=== PATIENT | male | born 1985 | race African-American/Black ===

== ENCOUNTER 2024-05-14 23:59 | Observation (INO) ==
[2024-05-15 00:25] LABS: iSTAT Creatinine 0.6 mg/dl (0.6-1.3); iSTAT Hemoglobin 15.6 g/dl (14.0-18.0); iSTAT Ionized Calcium 1.16 mmol/l (1.12-1.32); iSTAT Potassium 4.1 mmol/L (3.3-5.0)
[2024-05-15 00:33] LABS: Basophils # (auto) 0.03 K/uL (0.00-0.20); Basophils % (auto) 0.4 %; Eosinophils # (auto) 0.16 K/uL (0.00-0.50); Eosinophils % (auto) 2.2 %; Hematocrit (blood only) 44.2 % (42.0-52.0); Hemoglobin 14.7 g/dl (14.0-18.0); Immature Granulocytes # (auto) 0.02 K/uL (0.01-0.20); Immature Granulocytes % (auto) 0.3 %; Lymphocytes # (auto) 3.43 K/uL (1.20-3.40); Lymphocytes % (auto) 46.5 %; Mean Corpuscular Hemoglobin 26.3 pg (25.0-34.0); Mean Corpuscular Hgb Conc 33.3 g/dL (32.0-36.0); Mean Corpuscular Volume 79.2 fL (80.0-100.0); Mean Platelet Volume 11.6 fL (9.4-12.4); Monocytes # (auto) 0.51 K/uL (0.11-0.59); Monocytes % (auto) 6.9 %; Neutrophils # (auto) 3.23 K/uL (1.40-6.50); Neutrophils % (auto) 43.7 %; Platelet Count 197 K/uL (130-400); RDW Coefficient of Variation 12.4 % (11.5-14.5); RDW Standard Deviation 35.3 fL (36.4-46.3); Red Blood Count 5.58 M/uL (4.70-6.10); White Blood Count 7.38 K/ul (4.8-10.8)
[2024-05-15] MEDS: NITROGLYCERIN SL 0.4 MG/TAB TAB ONE (01:03)
[2024-05-15] MEDS: NITROGLYCERIN SL 0.4 MG/TAB TAB SL STA (01:03)
--- NOTE | 2024-05-15 01:12 | XRay Report ---
EXAM: XR chest 1V portable CLINICAL HISTORY: Chest pain, nonspecific TECHNIQUE: Radiograph of chest was acquired. COMPARISON: none FINDINGS: The lungs are clear and well-expanded with no pulmonary infiltrate or pleural effusion. The cardiomediastinal silhouette is within normal limits. No acute osseous abnormality. IMPRESSION: 1. No significant abnormality seen. Electronically signed by Niraj Botello 05-15-2024 01:11 AM
[2024-05-15 01:17] LABS: Albumin Globulin Ratio 1.3 (0.9-2); Albumin Level 4.1 gm/dl (3.4-5.0); BUN Creatinine Ratio 20.5 (10-20); Bilirubin,Total 0.4 mg/dl (0.2-1.0); Calcium 9.3 mg/dl (8.6-10.3); Creatinine Clr Calc Pharmacy 147.4 ml/min; Globulin 3.1 gm/dl (2.5-4.0); Potassium 4.1 mmol/L (3.5-5.1); Total Protein 7.2 gm/dl (6.0-8.3); Troponin I High Sensitivity 4.6 pg/ml (0-20)
[2024-05-15] MEDS: fentaNYL citrate PF 100 MCG/2 ML VIAL IV STA (01:47)
[2024-05-15] MEDS: ONDANSETRON INJ 2 MG/ML 2 ML VIAL IV STA (01:47)
--- NOTE | 2024-05-15 01:51 | History & Physical Report ---
Date of Service May 15, 2024 Assessment & Plan (1) Chest pain: Plan: observation to medical telemetry Check 2D echo Repeat troponin Continue aspirin, atorvastatin (2) Diabetes: Plan: elevated blood sugar upon arrival. Patient reports that he has a difficult time getting to his medication in the alf because he has a poor relationship with some of the staff that distributes the medications. Did not take his insulin today which may account for his elevated blood sugars Continue Lantus 18 units twice daily and insulin sliding scale Goal blood sugar [id number] -Continue Lisinopril 5mg po q PM (3) Hyperlipidemia: Plan: Continue Atorvastatin History of Present Illness Chief Complaint: chest pain Primary Care Provider: AMBER Bam patient is a 39-year-old incarcerated male with history of hypertension, hyperlipidemia, diabetes presented with acute onset of left-sided chest pain was reported 21: 30.. Patient reports pain 8 out of 10, throbbing in nature, radiating to his left jaw. Some nausea associated with it but no vomiting, diaphoresis or dizziness. The pain lasted 1 to 2 hours. He was seen in the [facility] and given a nitro which reduced pain. He did have recurrence of same pain in the ER which resolved with nitro Allergies Allergy/AdvReac Type Severity Reaction Status Date / Time No Known Allergies Allergy Unverified 03/09/24 15:16 Home Medications Medication Instructions Recorded Confirmed Type aspirin 81 mg tablet,delayed 81 mg PO QPM 03/09/24 03/09/24 History release atorvastatin 20 mg tablet 20 mg PO HS 03/09/24 03/09/24 History diphenhydramine HCl 50 mg capsule 50 mg PO HS 03/09/24 03/09/24 History glipizide 10 mg tablet 10 mg PO BID 03/09/24 03/09/24 History insulin glargine 100 unit/mL 44 unit subcut PM 03/09/24 03/09/24 History subcutaneous solution lisinopril 5 mg tablet 5 mg PO QPM 03/09/24 03/09/24 History metformin 500 mg tablet,extended 1,000 mg PO BID 03/09/24 03/09/24 History release 24 hr olanzapine 15 mg tablet 15 mg PO HS 03/09/24 03/09/24 History Past Med/Surg History Problem List (Updated 05/15/24 @ 05:22 by Heather Rowan DO) Hyperlipidemia Diabetes Chest pain Medical History HTN (hypertension), benign Social History Smoking Status: Current every day smoker Tobacco Type: E-cigarettes / Vaping Feels Safe at Home: Yes Review of Systems Review of Systems: All systems reviewed & are unremarkable except as noted in HPI & below Physical Exam Physical Exam: General: patient resting comfortably, NAD, non-toxic in appearance, AA&O x 4 Skin: warm, dry, intact, no rashes or lesions HEENT: NC/AT, PERRL, EOMI, anicteric sclera, conjunctiva without injection, external ear normal to inspection and nontender, nares patent, moist mucus membranes, dentition intact, no oropharyngeal lesions, neck supple, trachea midline, no LAD, no thyromegaly, no JVD Heart: +S1/S2, regular, no m/r/g Lungs: equal air entry bilaterally, no rales/rhonchi/wheezes Abd: +BS, soft, NT/ND, no masses/organomegaly/ascites Ext: warm, 2+ pulses in UE/LE bilaterally, no clubbing/cyanosis or edema Neuro: nonfocal, patient AA&O x 4, speech intact, no facial droop, moving all extremities on command with equal strength 5/5 Results & Data Results & Data Vital Signs (Past 12 Hours) Vital Signs Temp Pulse Resp BP Pulse Ox O2 Del Method 05/15/24 01:49 97 Room Air 05/15/24 01:09 79 21 158/95 H 91 Room Air 05/15/24 01:00 80 16 157/102 H 90 Room Air 05/15/24 00:30 80 23 140/90 94 Room Air 05/15/24 00:14 36.7 C 86 15 138/92 97 Room Air 05/15/24 00:07 84 Laboratory Results Laboratory Results WBC 7.38 K/ul (4.8-10.8) 05/15/24 00:11 RBC 5.58 M/uL (4.70-6.10) 05/15/24 00:11 Hgb 14.7 g/dl (14.0-18.0) 05/15/24 00:11 POC Hgb 15.6 g/dl (14.0-18.0) 05/15/24 00:13 Hct 44.2 % (42.0-52.0) 05/15/24 00:11 POC Hct 46 % (42-52) 05/15/24 00:13 MCV 79.2 fL (80.0-100.0) L 05/15/24 00:11 MCH 26.3 pg (25.0-34.0) 05/15/24 00:11 MCHC 33.3 g/dL (32.0-36.0) 05/15/24 00:11 RDW Std Deviation 35.3 fL (36.4-46.3) L 05/15/24 00:11 RDW Coeff of Alicja 12.4 % (11.5-14.5) 05/15/24 00:11 Plt Count 197 K/uL (130-400) 05/15/24 00:11 MPV 11.6 fL (9.4-12.4) 05/15/24 00:11 Immature Gran % (Auto) 0.3 % 05/15/24 00:11 Neut % (Auto) 43.7 % 05/15/24 00:11 Lymph % (Auto) 46.5 % 05/15/24 00:11 [place] % (Auto) 6.9 % 05/15/24 00:11 Eos % (Auto) 2.2 % 05/15/24 00:11 Baso % (Auto) 0.4 % 05/15/24 00:11 Neut # (Auto) 3.23 K/uL (1.40-6.50) 05/15/24 00:11 Lymph # (Auto) 3.43 K/uL (1.20-3.40) H 05/15/24 00:11 [place] # (Auto) 0.51 K/uL (0.11-0.59) 05/15/24 00:11 Eos # (Auto) 0.16 K/uL (0.00-0.50) 05/15/24 00:11 Baso # (Auto) 0.03 K/uL (0.00-0.20) 05/15/24 00:11 Immature Gran # (Auto) 0.02 K/uL (0.01-0.20) 05/15/24 00:11 POC Sodium 131 mmol/L (135-144) L 05/15/24 00:13 Sodium 129 mmol/L (136-145) L 05/15/24 00:11 POC Potassium 4.1 mmol/L (3.3-5.0) 05/15/24 00:13 Potassium 4.1 mmol/L (3.5-5.1) 05/15/24 00:11 POC Chloride 97 mmol/L (101-112) L 05/15/24 00:13 Chloride 95 mmol/L (98-107) L 05/15/24 00:11 Carbon Dioxide 24 mmol/L (21-32) 05/15/24 00:11 POC Total CO2 21 mmol/L (24-31) L 05/15/24 00:13 Anion Gap 10 (3-11) 05/15/24 00:11 POC Anion Gap 17.0 mmol/L (16-25) 05/15/24 00:13 POC BUN 15 mg/dl (7-18) 05/15/24 00:13 BUN 16 mg/dl (6-23) 05/15/24 00:11 Creatinine 0.78 mg/dl (0.6-1.4) 05/15/24 00:11 POC Creatinine 0.6 mg/dl (0.6-1.3) 05/15/24 00:13 Est Cr Clr Drug Dosing 147.4 ml/min 05/15/24 00:11 eGFR 115.62 05/15/24 00:11 BUN/Creatinine Ratio 20.5 (10-20) H 05/15/24 00:11 Glucose 484 mg/dl (70-99(Fasting)) H* 05/15/24 00:11 POC Glucose (other) 490 mg/dl (70-99) H* 05/15/24 00:13 Calcium 9.3 mg/dl (8.6-10.3) 05/15/24 00:11 POC Ioniz Calcium Zeke 1.16 mmol/l (1.12-1.32) 05/15/24 00:13 Magnesium 1.8 mg/dl (1.7-2.4) 05/15/24 03:33 Total Bilirubin 0.4 mg/dl (0.2-1.0) 05/15/24 00:11 AST 25 U/L (13-39) 05/15/24 00:11 ALT 44 U/L (7-52) 05/15/24 00:11 Alkaline Phosphatase 143 U/L (34-104) H 05/15/24 00:11 Troponin I High Sens 3.8 pg/ml (0-20) 05/15/24 03:33 Total Protein 7.2 gm/dl (6.0-8.3) 05/15/24 00:11 Albumin 4.1 gm/dl (3.4-5.0) 05/15/24 00:11 Globulin 3.1 gm/dl (2.5-4.0) 05/15/24 00:11 Albumin/Globulin Ratio 1.3 (0.9-2) 05/15/24 00:11 Lipase 28 U/L (11-82) 05/15/24 00:11 Impressions Chest X-Ray 05/15/24 00:08 EXAM: XR chest 1V portable CLINICAL HISTORY: Chest pain, nonspecific TECHNIQUE: Radiograph of chest was acquired. COMPARISON: none FINDINGS: The lungs are clear and well-expanded with no pulmonary infiltrate or pleural effusion. The cardiomediastinal silhouette is within normal limits. No acute osseous abnormality. IMPRESSION: 1. No significant abnormality seen. Electronically signed by Niraj Botello 05-15-2024 01:11 AM PG Care Time/CCT Total # of Minutes Spent Total Time Spent with Patient: Total time spent is greater than 50% in coordination of care (as documented) at patient's floor/unit and/or counseling patient: Coding Level of Care Code 07597 INT INP/OBS CARE 3/75MIN Diagnoses Chest pain R07.9 Diabetes E11.9 Hyperlipidemia E78.5
[2024-05-15] MEDS: NovoLIN-R INSULIN PER UNIT CHARGE IV STA (02:16)
[2024-05-15] MEDS ORDERED: GLUCOSE 40% GEL 15 GM TUBE PO PRN ×2 (03:07→05:25)
[2024-05-15] MEDS ORDERED: GLUCAGON FOR INJ 1 MG VIAL SQ PRN ×2 (03:07→05:25)
[2024-05-15] MEDS ORDERED: DEXTROSE 50% 50 ML SYRINGE IV PRN ×2 (03:07→05:25)
[2024-05-15] MEDS ORDERED: ONDANSETRON INJ 2 MG/ML 2 ML VIAL IV PRN (03:07)
[2024-05-15] MEDS ORDERED: CARBOHYDRATES FOR HYPOGLYCEMIA PO PRN ×2 (03:07→05:25)
[2024-05-15] MEDS ORDERED: GLUCOSE 10 TAB/TUBE PO PRN ×2 (03:07→05:25)
[2024-05-15 04:15] LABS: Magnesium 1.8 mg/dl (1.7-2.4)
[2024-05-15 04:20] LABS: Troponin I High Sensitivity 3.8 pg/ml (0-20)
--- NOTE | 2024-05-15 05:27 | Emergency Department Note ---
Impression & Plan Chest pain radiating to jaw, Acute hyponatremia, Hyperglycemia due to type 2 diabetes mellitus admit to the [facility] ED Provider Note NAME: SENIA [id number] TIFF AGE: 39 SEX: Male INFORMANT: Patient ED PROVIDER(S): Loreto Cox DO CHIEF COMPLAINT: Chest pain PLAN: Disposition: admit to the [facility] MEDICAL DECISION MAKING: this is a 39-year-old male patient who presents to the emergency department from retirement with sudden onset of left-sided jaw pain that radiated to his left chest. He went to the [facility] initially and was given a sublingual nitroglycerin which relieved the chest discomfort. Upon arrival in the emergency department, the patient was chest pain-free but there was concern as he had EKG findings of this some minimal ST segment elevation although there were no significant reciprocal changes could not discerning for acute STEMI. Laboratory studies revealed a normal troponin. Sodium was low at 129. Renal function was normal. H&H were stable. Serum glucose was 484. I discussed the case with the [facility] and they will evaluate for further inpatient care. Care/management discussed with: Jail guards, manager regional and [facility] Triage Nursing notes: reviewed and agree with them. Vital Signs: reviewed and remarkable for no significant abnormalities Additional History obtained from: EMS Chronic Medical/Social Conditions affecting care: Diabetes, hypertension Differential Diagnosis: STEMI, NSTEMI, aortic dissection, GERD Diagnostics, independently interpreted by me: ECG: Normal sinus rhythm at a rate of [address] segment elevation in leads II, aVF, V2 and V3. There were no obvious reciprocal changes noted. Repeat ECG: Normal sinus rhythm at a rate of 74 [address] segment elevation in lead V2 and V3 with no other obvious ischemic changes. Cardiac Monitoring: Normal sinus rhythm at a rate of 79 Imaging studies: portable chest x-ray: Significant cardiomegaly with no other acute pulmonary infiltrates or pathology as per my independent interpretation HPI: 39 year old Male arrives for evaluation of substernal chest discomfort and left jaw pain. patient had a sudden onset of substernal chest discomfort that radiation to the left jaw. He was given a dose of sublingual nitroglycerin at the [facility] which relieved his discomfort. He denies ever having discomfort in his chest like this before. PAST MEDICAL HISTORY: See Below, Family history: The patient denies any family history of heart disease SOCIAL HISTORY: Patient is a prisoner, HOME MEDICATIONS: See list ALLERGIES: None VITALS: See Below PHYSICAL EXAMINATION: HEENT: Head - normocephalic and atraumatic. Pupils are equal, round, and reactive to light. Extraocular eye muscles are intact, and sclera are anicteric. Nose - moist nasal mucosa without discharge. Mouth - moist buccal mucosa. Oropharynx is nonerythematous and there is no tonsillar exudate or edema noted. Neck: Supple; no JVD, nuchal rigidity, cervical lymphadenopathy. Heart: Regular rate and rhythm. There is a normal S1 and S2 with no murmurs, clicks, or gallops appreciated. Lungs: Clear to auscultation bilaterally with no wheezes, rales, or rhonchi. Abdomen: Soft, completely nontender, nondistended, with good bowel sounds. There are no palpable pulsatile masses or hepatosplenomegaly. There is no guarding, rigidity, or rebound noted. Extremities: No evidence of cyanosis, clubbing, or edema. There are easily palpable peripheral pulses. Skin: warm and dry with good turgor and no rashes. Emergency Department course: Patient was evaluated in room A-1. A twelve-lead EKG was done upon patient's arrival. An order was placed for continuous cardiac monitoring. The patient was in a normal sinus rhythm at a rate of 79. Prehospital EKGs were reviewed with the EMS crew. Laboratory studies were drawn as above. Portable chest x-ray was performed. Patient had recurrent chest discomfort while in the emergency department and was given another sublingual nitro. He had received aspirin from EMS. I discussed the case with the [facility] Hospitalist and they will evaluate for further inpatient care. Past Med/Surg History Problem List (Updated 05/16/24 @ 19:45 by Loreto Cox DO) Hyperglycemia due to type 2 diabetes mellitus (Acute) Acute hyponatremia (Acute) Chest pain radiating to jaw (Acute) Hyperlipidemia Diabetes Chest pain Medical History HTN (hypertension), benign Social History Smoking Status: Current every day smoker Tobacco Type: E-cigarettes / Vaping Preferred Language: Ecuadorean Feels Safe at Home: Yes Allergies Allergies Allergy/AdvReac Type Severity Reaction Status Date / Time No Known Allergies Allergy Unverified 03/09/24 15:16 Home Meds Home Medications Medication Instructions Recorded Confirmed aspirin 81 mg tablet,delayed 81 mg PO QPM 03/09/24 03/09/24 release atorvastatin 20 mg tablet 20 mg PO HS 03/09/24 03/09/24 diphenhydramine HCl 50 mg capsule 50 mg PO HS 03/09/24 03/09/24 glipizide 10 mg tablet 10 mg PO BID 03/09/24 03/09/24 insulin glargine 100 unit/mL 44 unit subcut PM 03/09/24 03/09/24 subcutaneous solution lisinopril 5 mg tablet 5 mg PO QPM 03/09/24 03/09/24 metformin 500 mg tablet,extended 1,000 mg PO BID 03/09/24 03/09/24 release 24 hr olanzapine 15 mg tablet 15 mg PO HS 03/09/24 03/09/24 Results & Data (ED) Vital Signs Vital Signs - 24 hr 05/15/24 00:07 05/15/24 00:14 05/15/24 00:30 Temperature 36.7 C Temperature Source Oral Pulse Rate 84 86 80 Pulse Rate from SpO2 Sensor 79 Pulse Rhythm Regular Respiratory Rate 15 23 Respiratory Effort / Characteristics Non-Labored Respiratory Depth Normal Blood Pressure 138/92 140/90 Blood Pressure Mean 107 107 Pulse Oximetry 97 94 Oxygen Delivery Method Room Air Room Air Sepsis Recent Fever Within 48 Hours No Sepsis New/Unexplained Change in Mental Status No Sepsis Action Taken by Nursing No Action Required 05/15/24 01:00 05/15/24 01:09 05/15/24 01:49 Temperature Temperature Source Pulse Rate 80 79 Pulse Rate from SpO2 Sensor 79 Pulse Rhythm Respiratory Rate 16 21 Respiratory Effort / Characteristics Respiratory Depth Blood Pressure 157/102 H 158/95 H Blood Pressure Mean 107 117 Pulse Oximetry 90 91 97 Oxygen Delivery Method Room Air Room Air Room Air Sepsis Recent Fever Within 48 Hours Sepsis New/Unexplained Change in Mental Status Sepsis Action Taken by Nursing Laboratory Data 05/15/24 00:11 05/15/24 00:11 Lab Results 05/15/24 05/15/24 Range/Units 00:11 00:13 WBC 7.38 (4.8-10.8) K/ul RBC 5.58 (4.70-6.10) M/uL Hgb 14.7 (14.0-18.0) g/dl POC Hgb 15.6 (14.0-18.0) g/dl Hct 44.2 (42.0-52.0) % POC Hct 46 (42-52) % MCV 79.2 L (80.0-100.0) fL MCH 26.3 (25.0-34.0) pg MCHC 33.3 (32.0-36.0) g/dL RDW Std Deviation 35.3 L (36.4-46.3) fL RDW Coeff of Alicja 12.4 (11.5-14.5) % Plt Count 197 (130-400) K/uL MPV 11.6 (9.4-12.4) fL Immature Gran % (Auto) 0.3 % Neut % (Auto) 43.7 % Lymph % (Auto) 46.5 % [place] % (Auto) 6.9 % Eos % (Auto) 2.2 % Baso % (Auto) 0.4 % Neut # (Auto) 3.23 (1.40-6.50) K/uL Lymph # (Auto) 3.43 H (1.20-3.40) K/uL [place] # (Auto) 0.51 (0.11-0.59) K/uL Eos # (Auto) 0.16 (0.00-0.50) K/uL Baso # (Auto) 0.03 (0.00-0.20) K/uL Immature Gran # (Auto) 0.02 (0.01-0.20) K/uL POC Sodium 131 L (135-144) mmol/L Sodium 129 L (136-145) mmol/L POC Potassium 4.1 (3.3-5.0) mmol/L Potassium 4.1 (3.5-5.1) mmol/L POC Chloride 97 L (101-112) mmol/L Chloride 95 L (98-107) mmol/L Carbon Dioxide 24 (21-32) mmol/L POC Total CO2 21 L (24-31) mmol/L Anion Gap 10 (3-11) POC Anion Gap 17.0 (16-25) mmol/L POC BUN 15 (7-18) mg/dl BUN 16 (6-23) mg/dl Creatinine 0.78 (0.6-1.4) mg/dl POC Creatinine 0.6 (0.6-1.3) mg/dl Est Cr Clr Drug Dosing 147.4 ml/min eGFR 115.62 BUN/Creatinine Ratio 20.5 H (10-20) Glucose 484 H* (70-99(Fasting)) mg/dl POC Glucose (other) 490 H* (70-99) mg/dl Calcium 9.3 (8.6-10.3) mg/dl POC Ioniz Calcium Zeke 1.16 (1.12-1.32) mmol/l Total Bilirubin 0.4 (0.2-1.0) mg/dl AST 25 (13-39) U/L ALT 44 (7-52) U/L Alkaline Phosphatase 143 H (34-104) U/L Troponin I High Sens 4.6 (0-20) pg/ml Total Protein 7.2 (6.0-8.3) gm/dl Albumin 4.1 (3.4-5.0) gm/dl Globulin 3.1 (2.5-4.0) gm/dl Albumin/Globulin Ratio 1.3 (0.9-2) Lipase 28 (11-82) U/L Administered Medications Discontinued Medications Acetaminophen (Acetaminophen 325 Mg Tab) 650 mg PO Q4H PRN PRN Reason: Pain or Fever Stop: 06/14/24 03:06 Last Admin: 05/15/24 14:20 Dose: 650 mg Documented By: AIXA Fentanyl Citrate (Fentanyl Citrate Pf 100 Mcg/2 Ml Vial) 100 mcg IV NOW STA Stop: 05/15/24 01:28 Last Admin: 05/15/24 01:47 Dose: 100 mcg Documented By: DML Insulin Aspart (Insulin Aspart Per Unit Charge) 0 units SC ACHS MELI Stop: 06/14/24 07:29 Last Admin: 05/15/24 14:18 Dose: 20 units Documented By: AIXA Co-signed By: SNS Admin: 05/15/24 09:49 Dose: 10 units Documented By: KURTIS Co-signed By: SADE Insulin Glargine (Lantus Per Unit Charge) 18 units SQ BID MELI Stop: 06/14/24 08:59 Last Admin: 05/15/24 09:48 Dose: 18 units Documented By: KURTIS Co-signed By: SADE Insulin Human Regular (Novolin-R Insulin Per Unit Charge) 8 units IV NOW STA Stop: 05/15/24 01:52 Last Admin: 05/15/24 02:16 Dose: 8 units Documented By: SHERRY Co-signed By: SADE Nitroglycerin (Nitroglycerin Sl 0.4 Mg/Tab Tab) Confirm Administered Dose 0.4 mg .ROUTE .STK-MED ONE Stop: 05/15/24 01:02 Last Admin: 05/15/24 01:03 Dose: Not Given Documented By: GREGORY Nitroglycerin (Nitroglycerin Sl 0.4 Mg/Tab Tab) 0.4 mg SL NOW STA Stop: 05/15/24 01:02 Last Admin: 05/15/24 01:03 Dose: 0.4 mg Documented By: GREGORY Ondansetron HCl (Ondansetron Inj 2 Mg/Ml 2 Ml Vial) 4 mg IV NOW STA Stop: 05/15/24 01:28 Last Admin: 05/15/24 01:47 Dose: 4 mg Documented By: GREGORY Imaging Data Radiologist's Impression: Chest X-Ray 05/15/24 00:08 EXAM: XR chest 1V portable CLINICAL HISTORY: Chest pain, nonspecific TECHNIQUE: Radiograph of chest was acquired. COMPARISON: none FINDINGS: The lungs are clear and well-expanded with no pulmonary infiltrate or pleural effusion. The cardiomediastinal silhouette is within normal limits. No acute osseous abnormality. IMPRESSION: 1. No significant abnormality seen. Electronically signed by Niraj Botello 05-15-2024 01:11 AM Discharge Plan Visit Data Chief Complaint: Cardiac Assessment Stated Complaint: CHEST PAIN ED Provider: Loreto Cox Discharge Problem: Chest pain radiating to jaw, Acute hyponatremia, Hyperglycemia due to type 2 diabetes mellitus Patient Disposition: Admitted As Inpatient Condition: Good Discharge Instructions Interventions: ED Discharge Assessment Last Done: 05/15/24 03:08
[2024-05-15] MEDS: LANTUS PER UNIT CHARGE SQ SCH (09:48)
[2024-05-15] MEDS: INSULIN ASPART PER UNIT CHARGE SC SCH (09:49)
[2024-05-15] MEDS ORDERED: PHARMACY GLYCEMIC MGMT CONSULT PRN (12:37)
--- NOTE | 2024-05-15 13:49 | Discharge Summary ---
Discharge Summary Date of Service May 15, 2024 Principal Dx & Hospital Course #1 = Principal Diagnosis (1) Chest pain: observation to medical telemetry Check 2D echo Repeat troponin Continue aspirin, atorvastatin -EKG and troponin WNL. Confirmed with cardiology -pt chest pain free at this time, likely atypical 2nd to anxiety (2) Diabetes: elevated blood sugar upon arrival. Patient reports that he has a difficult time getting to his medication in the senior care because he has a poor relationship with some of the staff that distributes the medications. Did not take his insulin today which may account for his elevated blood sugars Continue Lantus 18 units twice daily and insulin sliding scale Goal blood sugar 108398 -Continue Lisinopril 5mg po q PM (3) Hyperlipidemia: Continue Atorvastatin Admission HPI Per Admitting Provider patient is a 39-year-old incarcerated male with history of hypertension, hyperlipidemia, diabetes presented with acute onset of left-sided chest pain was reported 21: 30.. Patient reports pain 8 out of 10, throbbing in nature, radiating to his left jaw. Some nausea associated with it but no vomiting, diaphoresis or dizziness. The pain lasted 1 to 2 hours. He was seen in the [facility] and given a nitro which reduced pain. He did have recurrence of same pain in the ER which resolved with nitro Discharge Exam GENERAL APPEARANCE NAD, activity normal for age, well developed/ well nourished, no cyanosis, pallor, or diaphoresis. EYES lids/conjunctiva normal. EARS/NOSE/THROAT Mucous membranes moist, nares normal, lips/teeth normal uvula midline without oral pharyngeal erythema, exudate or swelling TMs normal bilaterally. No lymphangitis/lymphedema. HEAD/NECK normocephalic atraumatic, no facial trauma, neck is supple. RESPIRATORY respiratory effort normal, speaks in full sentences, no tripod position, no accessory muscle use. Lungs clear to auscultation without rhonchi, wheezes, rales CARDIAC Regular rate and rhythm, no edema. ABDOMINAL Soft, ND/NT. No evidence of fluid wave. No pulsatile masses on exam, rebound tenderness, Schilling sign or pain over Mcburney's point. MUSCLES/EXTREMITIES No abnormal range of motion, no swelling. SKIN Warm, pink and dry. No rashes, dermatoses, petechiae or lesions. NEUROLOGICAL Speech is clear and appropriate. Normal level of consciousness. Gait and coordination are normal. 5/5 strength in all extremities. PSYCH Normal mood and affect. Judgement/competence is appropriate Discharge Plan Discharge Items [facility] Reason For Visit: CHEST PAIN Discharge Diagnosis: Atypical chest pain Activity: Resume your previous activity Non-emergency contact: Primary Care Provider Call non-emergency contact if: you have any medication questions Follow-up/Referrals: Bam CLARK [Primary Care Provider] - Diet: Carb Count or DM1 Addtl Attending Provider Instructions: Follow up with PMD in 2 weeks or if symptoms continue Pending Studies at Discharge: No Skilled Items Patient informed of condition?: Yes DNR: No Discharge Level of Care: Other Communicable Disease: No Discharge Prognosis: Stable Lines: None Urinary Catheter: No Medications and DC Order Prescriptions: Continued insulin glargine 100 unit/mL Solution 44 unit SUBCUT PM metformin 500 mg Tablet Extended Release 24 Hr 1,000 mg PO BID atorvastatin 20 mg Tablet 20 mg PO HS aspirin 81 mg Tablet,Delayed Release (Dr/Ec) 81 mg PO QPM diphenhydramine HCl 50 mg Capsule 50 mg PO HS glipizide 10 mg Tablet 10 mg PO BID olanzapine 15 mg Tablet 15 mg PO HS lisinopril 5 mg Tablet 5 mg PO QPM Admission Data Admit Date/Time: 05/15/24 01:50 Attending Provider: Michael Cheung Admit Provider: Heather Rowan Primary Care Provider: Bam CLARK Other Providers: Heather Rowan Hospital Stay Data Consultations 05/15/24 01:31 ED Decision to Admit Stat Pending Results Patient Have Any Pending Studies at Discharge: No Discharge Instructions Given to Patient (Per Discharging Provider) Follow up with PMD in 2 weeks or if symptoms continue Total Time Total Time Spent Total Time Spent (In Minutes): 50 Coding Level of Care Code 21795 INP/OBS DISCH >30 MIN Diagnoses Chest pain R07.9 Diabetes E11.9 Hyperlipidemia E78.5
[2024-05-15] MEDS: ACETAMINOPHEN 325 MG TAB PO PRN (14:20)
--- NOTE | 2024-05-15 15:30 | XCELERA ---
[id number] [id number]
--- NOTE | 2024-05-15 16:03 | Electrocardiogram Report ---
Test Reason : Blood Pressure : */* mmHG Vent. Rate : 85 BPM Atrial Rate : 85 BPM P-R Int : 176 ms QRS Dur : 88 ms QT Int : 326 ms P-R-T Axes : 41 90 27 degrees QTcB Int : 387 ms Normal sinus rhythm Rightward axis When compared with ECG of 09-Mar-2024 13:34, No significant change was found Confirmed by Anthony Esparza ([id number]) on 05/15/2024 4:03:04 PM Referred By: Bam SCI Confirmed By: Anthony Esparza
[2024-05-15] MEDS ORDERED: ATORVASTATIN 20 MG TAB PO SCH (21:00)
[2024-05-15] MEDS ORDERED: lisinopril 5 MG TAB PO SCH (21:00)
[2024-05-15] MEDS ORDERED: OLANZapine 5 MG TABLET PO SCH (21:00)
[2024-05-15] MEDS ORDERED: diphenhydrAMINE Capsule 25 MG CAP PO SCH (21:00)
[2024-05-15] MEDS ORDERED: ASPIRIN 81 MG ECTAB PO SCH (21:00)
--- NOTE | 2024-05-19 14:59 | Electrocardiogram Report ---
Test Reason : Blood Pressure : */* mmHG Vent. Rate : 74 BPM Atrial Rate : 74 BPM P-R Int : 184 ms QRS Dur : 90 ms QT Int : 354 ms P-R-T Axes : 64 83 33 degrees QTcB Int : 392 ms Normal sinus rhythm Nonspecific ST abnormality Abnormal ECG When compared with ECG of 15-May-2024 00:05, No significant change was found Confirmed by Cyril Conte ([id number]) on 05/19/2024 2:59:18 PM Referred By: Bam SCI Confirmed By: Cyril Conte
== END 2024-05-15 14:31 ==
LOC: EDINP 23:59 → ED 23:59 → SUATTDRO 05-15 01:50 → EDINP 05-15 03:08